=== PATIENT | male | born 1960 | race Caucasian/White ===

== ENCOUNTER 2018-06-22 00:46 | Emergency (ER) | payer OTHER ==
[~2018-06-22] VITALS: Ht 180.3 cm; Wt 74.4 kg
--- NOTE | 2018-06-22 01:03 | NUR ---
Pt walks into ER with c/o suicidal ideation & states that his plan is to hang himself. Alert & oriented x 3. Suicide precautions implemented.
[2018-06-22] MEDS ORDERED: FLUO20CA36 PO (01:09)
[2018-06-22] MEDS ORDERED: TRAZ-214 PO (01:09)
[2018-06-22] MEDS ORDERED: DIVA500T2 PO (01:09)
[2018-06-22 01:11] LABS: *BLOOD, URINE NEGATIVE (NEGATIVE); *CLARITY,URINE CLEAR (CLEAR); *COLOR,URINE YELLOW (YELLOW); *KETONES,URINE 1+ (NEGATIVE); *PROTEIN,URINE 1+ (NEGATIVE); LEUKOCYTE ESTERASE ,URINE NEGATIVE (NEGATIVE); NITRITE, URINE NEGATIVE (NEGATIVE); UGLUCOSE NEGATIVE (NEGATIVE)
[2018-06-22 01:12] LABS: *BILIRUBIN,URIN 1+ (NEGATIVE)
[2018-06-22 01:19] LABS: BACTERIA,URINE NONE SEEN /HPF (NONE SEEN); RBC,URINE 0-3 /HPF (0-3); SQUAMOUS EPITHELIAL CELL,UR NONE SEEN /HPF (NONE SEEN); WBC,URINE 0-3 /HPF (0-3)
[2018-06-22 01:37] LABS: BASOPHILS % (AUTO) 0.5 % (0.0-2.0); EOSINOPHILS # (AUTO) 0.4 K/uL (0.0-0.7); EOSINOPHILS % (AUTO) 3.9 % (0.0-7.0); HEMOGLOBIN 12.6 g/dL (12.5-16.3); LYMPHOCYTES # (AUTO) 2.2 K/uL (20.0-40.0); LYMPHOCYTES % (AUTO) 22.2 % (20.5-51.5); MEAN CORPUSCULAR HEMOGLOBIN 34.1 uug (23.8-33.4); MEAN CORPUSCULAR HGB CONC 35 g/dL (32.5-36.3); MONOCYTES # (AUTO) 1.2 K/uL (2.0-10.0); MONOCYTES % (AUTO) 11.6 % (0.0-11.0); NEUTROPHILS # (AUTO) 6.2 K/uL (1.8-8.9); NEUTROPHILS % (AUTO) 61.8 % (38.5-71.5); PLATELET COUNT (AUTO) 202 K/uL (152-348); RED BLOOD CELL COUNT(AUTO) 3.71 MIL/uL (4.06-5.63)
[2018-06-22 01:39] LABS: *AMPHETAMINE, URINE POSITIVE (NEGATIVE); *BARBITURATE, URINE NEGATIVE (NEGATIVE); *CANNABINOID, URINE NEGATIVE (NEGATIVE); *COCCAINE, URINE NEGATIVE (NEGATIVE); *OPIATE, URINE NEGATIVE (NEGATIVE); *PHENCYCLIDINE SCREEN,URINE NEGATIVE (NEGATIVE)
[2018-06-22 01:50] LABS: ALANINE AMINOTRANSFERASE 34 U/L (16-63); ASPARTATE AMINOTRANSFERASE 36 U/L (15-37); BILIRUBIN,DIRECT 0.2 mg/dL (0.0-0.2); CARBON DIOXIDE 31 mmol/L (21-32); CHLORIDE 105 mmol/L (98-107); CREATININE 1.2 mg/dL (0.6-1.3); GLUCOSE 95 mg/dL (74-106); POTASSIUM 3.4 mmol/L (3.5-5.1); UREA NITROGEN, BLOOD 36 mg/dL (7-18)
[2018-06-22 01:55] LABS: ACETAMINOPHEN < 2.0 ug/mL (10-30)
[2018-06-22 02:08] LABS: ETHANOL < 3 MG/DL (0-0)
[2018-06-22] MEDS ORDERED: IV NORMAL SALINE 1000 ML BAG IV ONE ×2 (02:15→04:00)
[2018-06-22] MEDS ORDERED: POTASSIUM CHLORIDE 10 MEQ TAB.PRT.SR PO ONE (02:15)
--- NOTE | 2018-06-22 02:15 | NUR ---
Patient medically cleared. Killian STEVENSW with eval patient
[2018-06-22 02:21] LABS: ALKALINE PHOSPHATASE 77 U/L (50-136); BILIRUBIN,TOTAL 0.7 mg/dL (0.2-1.0); TOTAL PROTEIN, SERUM 7.5 g/dL (6.4-8.2)
[2018-06-22] MEDS ORDERED: POTASSIUM CHLORIDE 20 MEQ TAB.PRT.SR ONE (02:26)
[2018-06-22] MEDS ORDERED: POTASSIUM CHLORIDE 20 MEQ TAB.PRT.SR PO ONE (02:30)
--- NOTE | 2018-06-22 02:48 | NUR ---
Killian Granda LCSW, at bedside for PET evaluation.
--- NOTE | 2018-06-22 03:11 | NUR ---
Packet was faxed over to [facility]. Pt willing to be admitted there voluntarily. Pending bed availability.
--- NOTE | 2018-06-22 04:20 | NUR ---
RK FROM [facility] CALLED BACK FOR TRANSFER INFO. ACCEPTING MD IS DR RIVERA. CALL FOR REPORT IS
--- NOTE | 2018-06-22 04:27 | NUR ---
CALLED PATRICIA TO TRANSFER PATIENT TO [facility]. ETA IS [phone]. TRIP #[id number]
--- NOTE | 2018-06-22 04:43 | NUR ---
Called [facility] at [phone] ext. [phone] & gave report to ASTON Regalado.
--- NOTE | 2018-06-22 05:01 | NUR ---
IV removed. Catheter intact and site benign. Pressure and 4x4 gauze applied to site. No bleeding noted.
--- NOTE | 2018-06-22 06:42 | NUR ---
Patient discharged to home in stable conditon. Written and verbal after care instructions given. Patient verbalizes understanding of instructions.
--- NOTE | 2018-06-22 06:43 | NUR ---
[facility] here to transport pt to [facility]. ANTHONY. QUINTON noted.
[2018-06-26] MEDS ORDERED: ARIP15TA3 PO (18:24)
== END 2018-06-22 06:47 | disposition short-term general hospital (02) ==
LOC: ER 00:54
DX: R45.851 Suicidal ideations (principal); F15.10 Other stimulant abuse, uncomplicated; E86.0 Dehydration; E87.6 Hypokalemia; F31.9 Bipolar disorder, unspecified; F17.200 Nicotine dependence, unspecified, uncomplicated
CPT/HCPCS: 36415; 80048; 80076; 80307; 81001; 85025; 96360; 99285; G0480 ×2; G0481; A4663; J7030

== ENCOUNTER 2018-07-01 13:33 | Emergency (ER) | payer OTHER ==
[~2018-07-01] VITALS: Ht 180.3 cm; Wt 74.4 kg
[~2018-07-01 13:33] MED LIST: ARIP15TA3 PO; DIVA500T2 PO; FLUO20CA36 PO; TRAZ-214 PO
--- NOTE | 2018-07-01 13:48 | NUR ---
POST- RAPID RESPONSE, BIB [facility]HU STAFF, AWAKE AND VERBALLY ORIENTED, S/P SYNCOPE - STILL FEELING DIZZY AND NAUSEOUS, ANSWERING QUESTIONS APPROPRIATELY. DR VILLEGAS AT BEDSIDE FOR EVAL.
--- NOTE | 2018-07-01 13:50 | NUR ---
PT IS IN ROOM #1A. DR VILLEGAS EVALUATED THE PT.
[2018-07-01 14:00] LABS: BASOPHILS # (AUTO) 0.1 K/uL (0.0-8.0); BASOPHILS % (AUTO) 0.6 % (0.0-2.0); EOSINOPHILS # (AUTO) 0.5 K/uL (0.0-0.7); HEMATOCRIT 39.9 % (36.7-47.1); HEMOGLOBIN 13.8 g/dL (12.5-16.3); LYMPHOCYTES # (AUTO) 1.9 K/uL (20.0-40.0); LYMPHOCYTES % (AUTO) 20.8 % (20.5-51.5); MEAN CORPUSCULAR HEMOGLOBIN 34.2 uug (23.8-33.4); MEAN CORPUSCULAR HGB CONC 35 g/dL (32.5-36.3); MEAN CORPUSCULAR VOLUME 98.7 fL (73.0-96.2); MONOCYTES # (AUTO) 0.7 K/uL (2.0-10.0); MONOCYTES % (AUTO) 7.5 % (0.0-11.0); NEUTROPHILS % (AUTO) 66.1 % (38.5-71.5); PLATELET COUNT (AUTO) 188 K/uL (152-348); RED BLOOD CELL COUNT(AUTO) 4.04 MIL/uL (4.06-5.63)
[2018-07-01 14:15] LABS: BILIRUBIN,DIRECT 0.1 mg/dL (0.0-0.2); BILIRUBIN,TOTAL 0.3 mg/dL (0.2-1.0); CREATININE 1.1 mg/dL (0.6-1.3); POTASSIUM 4.1 mmol/L (3.5-5.1); TOTAL PROTEIN, SERUM 7.2 g/dL (6.4-8.2)
[2018-07-01] MEDS ORDERED: TEMA7.5C2 PO (14:42)
[2018-07-01] MEDS ORDERED: ACET325T53 PO (14:42)
[2018-07-01] MEDS ORDERED: NITR0.4T48 SL (14:42)
[2018-07-01] MEDS ORDERED: DIVA250T4 PO (14:42)
[2018-07-01] MEDS ORDERED: DIVA-78 PO (14:42)
[2018-07-01] MEDS ORDERED: LORA0.5T PO (14:42)
[2018-07-01] MEDS ORDERED: ARIP5TAB10 PO (14:42)
[2018-07-01] MEDS ORDERED: NICO-672 TD (14:42)
[2018-07-01] MEDS ORDERED: MAG360OR61 PO (14:42)
--- NOTE | 2018-07-01 15:12 | NUR ---
DR VILLEGAS TALKED TO DR CARVAJAL. PT WAS TRANSFERED BACK TO U ROOM #141A. REPORT WAS GIVEN TO [facility] RN.
[2018-07-01 15:15] VITALS: BP 116/72
== END 2018-07-01 15:16 | disposition home or self-care (01) ==
LOC: ER 13:34
DX: R42 Dizziness and giddiness (principal); F32.9 Major depressive disorder, single episode, unspecified; F41.9 Anxiety disorder, unspecified; F31.9 Bipolar disorder, unspecified; F17.200 Nicotine dependence, unspecified, uncomplicated; F15.10 Other stimulant abuse, uncomplicated; Z59.0 Homelessness; Z79.899 Other long term (current) drug therapy
CPT/HCPCS: 36415; 70030-TC; 70450; 85025; 85730; 93005; A4663

== ENCOUNTER 2019-01-13 18:04 | Emergency (ER) | payer MEDICAID ==
[~2019-01-13] VITALS: Ht 177.8 cm; Wt 77.1 kg
[~2019-01-13 18:04] MED LIST changes: +ACET325T53 PO; -ARIP15TA3 PO; +ARIP5TAB10 PO; +DIVA-78 PO; +DIVA250T4 PO; -DIVA500T2 PO; -FLUO20CA36 PO; +LORA0.5T PO; +MAG360OR61 PO; +NICO-672 TD; +NITR0.4T48 SL; +TEMA7.5C2 PO; -TRAZ-214 PO
--- NOTE | 2019-01-13 18:23 | NUR ---
PT IS IN ROOM #2B, WAITING FOR ER MD EVALUATION. SITTER AD THE BEDSIDE TO MONITOR THE PT.
[2019-01-13] MEDS ORDERED: DIVA500T2 PO (18:43)
[2019-01-13] MEDS ORDERED: FLUO40CA8 PO (18:43)
--- NOTE | 2019-01-13 19:09 | NUR ---
REPORT GIVEN TO ASTON FRANCO.
--- NOTE | 2019-01-13 19:10 | NUR ---
Received report from Al CLANCY, assumed care of pt,
[2019-01-13 19:18] LABS: BASOPHILS % (AUTO) 0.5 % (0.0-2.0); EOSINOPHILS # (AUTO) 0.2 K/uL (0.0-0.7); EOSINOPHILS % (AUTO) 3.9 % (0.0-7.0); HEMATOCRIT 39.4 % (36.7-47.1); HEMOGLOBIN 13.1 g/dL (12.5-16.3); LYMPHOCYTES # (AUTO) 2.7 K/uL (20.0-40.0); LYMPHOCYTES % (AUTO) 51.2 % (20.5-51.5); MEAN CORPUSCULAR HEMOGLOBIN 32.4 uug (23.8-33.4); MEAN CORPUSCULAR HGB CONC 33 g/dL (32.5-36.3); MONOCYTES # (AUTO) 0.4 K/uL (2.0-10.0); MONOCYTES % (AUTO) 7.5 % (0.0-11.0); NEUTROPHILS # (AUTO) 1.9 K/uL (1.8-8.9); NEUTROPHILS % (AUTO) 36.9 % (38.5-71.5); PLATELET COUNT (AUTO) 170 K/uL (152-348); RED BLOOD CELL COUNT(AUTO) 4.06 MIL/uL (4.06-5.63); WHITE BLOOD COUNT (AUTO) 5.2 K/uL (3.6-10.2)
--- NOTE | 2019-01-13 19:25 | NUR ---
Called security for sitter,
[2019-01-13 19:33] LABS: ETHANOL 6 MG/DL (0-0)
[2019-01-13 19:34] LABS: ALANINE AMINOTRANSFERASE 16 U/L (16-63); ALKALINE PHOSPHATASE 59 U/L (50-136); ASPARTATE AMINOTRANSFERASE 12 U/L (15-37); BILIRUBIN,DIRECT < 0.1 mg/dL (0.0-0.2); BILIRUBIN,TOTAL 0.2 mg/dL (0.2-1.0); CARBON DIOXIDE 29 mmol/L (21-32); CHLORIDE 108 mmol/L (98-107); CREATININE 0.9 mg/dL (0.6-1.3); GLUCOSE 142 mg/dL (74-106); POTASSIUM 3.6 mmol/L (3.5-5.1); UREA NITROGEN, BLOOD 23 mg/dL (7-18)
[2019-01-13 19:35] LABS: ACETAMINOPHEN < 2.0 ug/mL (10-30)
[2019-01-13 19:58] LABS: THYROID STIMULATING HORMONE 3.708 mIU/mL (0.358-3.740)
--- NOTE | 2019-01-13 20:10 | NUR ---
Called Laura for CE, ETA [phone]
--- NOTE | 2019-01-13 21:00 | NUR ---
Laura GEORGE in w/ pt. for CE,
--- NOTE | 2019-01-13 21:35 | NUR ---
Pt. up to use restroom, ambulates w/ steady gait, urine specimen collected and sent to lab, dark yellow fluid - no blood noted,
[2019-01-13 21:39] LABS: *BLOOD, URINE NEGATIVE (NEGATIVE); *CLARITY,URINE CLEAR (CLEAR); *COLOR,URINE YELLOW (YELLOW); *KETONES,URINE 1+ (NEGATIVE); LEUKOCYTE ESTERASE ,URINE NEGATIVE (NEGATIVE); NITRITE, URINE NEGATIVE (NEGATIVE); PH,URINE 6.5 (5.0-8.0); UGLUCOSE TRACE (NEGATIVE)
[2019-01-13 21:46] LABS: *AMPHETAMINE, URINE NEGATIVE (NEGATIVE); *BARBITURATE, URINE NEGATIVE (NEGATIVE); *CANNABINOID, URINE NEGATIVE (NEGATIVE); *COCCAINE, URINE NEGATIVE (NEGATIVE); *OPIATE, URINE NEGATIVE (NEGATIVE); *PHENCYCLIDINE SCREEN,URINE NEGATIVE (NEGATIVE)
[2019-01-13 21:50] LABS: *BILIRUBIN,URIN 1+ (NEGATIVE)
[2019-01-13 21:52] LABS: BACTERIA,URINE NONE SEEN /HPF (NONE SEEN); RBC,URINE 0-3 /HPF (0-3); SQUAMOUS EPITHELIAL CELL,UR FEW /HPF (NONE SEEN); WBC,URINE 0-3 /HPF (0-3)
--- NOTE | 2019-01-13 22:25 | NUR ---
UA/UDS faxed to [facility], rhina Sanchez pt. is accepted there, report to be given after 8AM
--- NOTE | 2019-01-13 22:28 | NUR ---
Pt. resting in bed, bed in low position, security at bedside, NAD
--- NOTE | 2019-01-13 23:33 | NUR ---
Received call from Marga at [facility], bed available now, called [facility] for transport ETA 0000, trip #[id number]
--- NOTE | 2019-01-14 00:15 | NUR ---
Pt. taken off unit via stretcher by MELISSA for admit to [facility], d/c per MD orders, d/c papers signed, all belongings w/ transport, VSS, NAD
== END 2019-01-14 00:18 | disposition short-term general hospital (02) ==
LOC: ER 18:06
DX: R45.851 Suicidal ideations (principal); F32.9 Major depressive disorder, single episode, unspecified; F17.200 Nicotine dependence, unspecified, uncomplicated; F15.10 Other stimulant abuse, uncomplicated; Z79.899 Other long term (current) drug therapy
CPT/HCPCS: 36415; 71045; 80048; 80076; 80307; 81000; 81001; 82140; 84443; 84484; 85025; 85730; 93005; 99285; G0480 ×2; G0481; 70030-TC; A4663